=== PATIENT | male | born 1940 | race Caucasian/White ===

== ENCOUNTER → 2020-02-16 | Outpatient (CLI) | payer MEDICARE, OTHER | END | disposition home or self-care (01) | LOC: STAR 13:08 | PROVIDERS: ATTEND Internal Medicine Cardiovascular Disease | DX: Z20.828 Contact with and (suspected) exposure to other viral communicable diseases (principal) | CPT/HCPCS: 36415; 87635 ==

== ENCOUNTER 2020-02-23 10:45 | Day surgery (SDC) | payer MEDICARE, OTHER ==
[~2020-02-23] VITALS: Ht 175.3 cm; Wt 79.0 kg
[2020-02-23] MEDS ORDERED: SODIUM CHLORIDE 0.9% 1,000 ML IV ONE (11:00)
[2020-02-23 12:11] VITALS: BP 145/97
[2020-02-23] MEDS ORDERED: SUMA50TA4 PO (12:20)
[2020-02-23] MEDS ORDERED: ACET325T14 PO (12:20)
[2020-02-23] MEDS ORDERED: MAGN400T36 PO (12:20)
[2020-02-23 12:32] LABS: ANION GAP 6 mmol/L (5-15); CALCIUM 8.9 mg/dL (8.5-10.1); CHLORIDE 107 mmol/L (98-107); CREATININE 1.01 mg/dL (0.7-1.3)
[2020-02-23] MEDS ORDERED: PROPOFOL 10 MG/ML, 20ML ONE (12:43)
== END 2020-02-23 15:06 | disposition home or self-care (01) ==
LOC: CACL 10:45
PROVIDERS: ATTEND Internal Medicine Cardiovascular Disease
DX: I48.91 Unspecified atrial fibrillation (principal); I25.10 Atherosclerotic heart disease of native coronary artery without angina pectoris; Z79.899 Other long term (current) drug therapy; Z95.0 Presence of cardiac pacemaker
CPT/HCPCS: 36415; 80048; 92960; 93312; 93321; 93325; J2704